=== PATIENT | female | born 1940 | race Two or more races ===

== ENCOUNTER 2021-01-14 15:37 | Emergency (ER) | payer OTHER ==
[~2021-01-14] VITALS: Ht 152.4 cm; Wt 64.9 kg
[2021-01-14] MEDS ORDERED: EZALLOR SPRINKL10 MG (16:18)
[2021-01-14] MEDS ORDERED: CARVEDILOL25 M1 (16:18)
[2021-01-14] MEDS ORDERED: COZAAR50 MG (16:18)
[2021-01-14] MEDS ORDERED: NEURONTIN600 M1 PO (16:19)
[2021-01-14] MEDS ORDERED: HYDROCHLOROTH12.5 MG (16:19)
[2021-01-14] MEDS ORDERED: PANTOPRAZOLE SO40 M2 (16:19)
[2021-01-15] MEDS ORDERED: CIPRO500 MG PO (00:04)
[2021-01-15] MEDS ORDERED: PYRIDIUM DS200 MG PO (00:04)
== END 2021-01-15 01:11 | disposition home or self-care (01) ==
LOC: ER 15:37
DX: N39.0 Urinary tract infection, site not specified (principal); R10.32 Left lower quadrant pain

== ENCOUNTER 2021-04-22 18:33 | Emergency (ER) | payer OTHER ==
[~2021-04-22] VITALS: Ht 152.4 cm; Wt 62.6 kg
[~2021-04-22 18:33] MED LIST: CARVEDILOL25 M1; CIPRO500 MG PO; COZAAR50 MG; EZALLOR SPRINKL10 MG; HYDROCHLOROTH12.5 MG; NEURONTIN600 M1 PO; PANTOPRAZOLE SO40 M2; PYRIDIUM DS200 MG PO
[2021-04-22] MEDS ORDERED: ZOLOFT50 MG (18:59)
[2021-04-22] MEDS ORDERED: ALLERGY RELIEF180 MG (19:00)
[2021-04-22] MEDS ORDERED: OMEPRAZOLE MAGN20 MG PO (21:18)
== END 2021-04-22 21:23 | disposition home or self-care (01) ==
LOC: ER 18:33
DX: K21.9 Gastro-esophageal reflux disease without esophagitis (principal)

== ENCOUNTER 2025-01-29 12:04 | Emergency (ER) | payer OTHER ==
[~2025-01-29] VITALS: Ht 152.4 cm; Wt 63.0 kg
[~2025-01-29 12:04] MED LIST changes: +ALLERGY RELIEF180 MG; +OMEPRAZOLE MAGN20 MG PO; +ZOLOFT50 MG
[2025-01-29] MEDS ORDERED: TAMSULOSIN HCL 0.4 MG CAP PO ONE ×2 (13:08→13:15)
[2025-01-29] MEDS ORDERED: 0.9 % SODIUM CHLORIDE 1,000 ML IV SCH (13:15)
[2025-01-29] MEDS ORDERED: MORPHINE SULFATE 4 MG/ML VIAL IV ONE (13:15)
[2025-01-29 13:35] LABS: BASO % 0.6 % (0.1-1.2); EOS # 0.20 (0.04-0.54); EOS % 2.3 % (0.7-7.0); LYMPH # 2.61 (1.18-3.74); LYMPH % 30.3 % (19.3-53.1); MEAN PLATELET VOLUME 9.80 fl (9.4-12.4); MONO # 0.63 (0.24-0.82); MONO % 7.3 % (4.7-12.5); NEUT # 5.09 (1.56-6.13); NEUT % 59.3 % (34.0-71.1); RED CELL DISTRIBUTION WIDTH 11.7 % (11.6-14.4)
[2025-01-29 14:53] LABS: BUN CREA RATIO 23.0 (7.0-25.0); CREATININE SERUM 0.79 mg/dL (0.55-1.02); GFR 69.67; GLUCOSE FASTING 97.0 mg/dL (65-100); OSMOLALITY SERUM 283.0 MOSM/KG (275-295)
[2025-01-29 16:18] LABS: URINE APPEARANCE Clear; URINE BILIRRUBIN Negative (NEGATIVE); URINE BLOOD Negative; URINE COLOR Yellow; URINE GLUCOSE Negative (NEGATIVE); URINE KETONE Negative (NEGATIVE); URINE LEUKOCYTE Small; URINE NITRATE Negative; URINE PROTEIN Negative (NEGATIVE); URINE UROBILINOGEN 0.2 E.U./dl
[2025-01-29 16:20] LABS: URINE BACTERIA 35.9 uL (0.0-1933); URINE EPITHELIAL CELLS 8.6 uL (0.0-38.8); URINE RBC 10.9 uL (0.0-20.8); URINE WBC 9.0 uL (0.0-23.2)
[2025-01-29 16:37] LABS: URINE CAST 0.00 uL (0.0-1.40)
[2025-01-29] MEDS ORDERED: BACTRIM DS TAB1 EACH PO (17:11)
[2025-01-29] MEDS ORDERED: PEPCID AC20 MG PO (17:11)
== END 2025-01-29 17:18 | disposition home or self-care (01) ==
LOC: ER 12:04
PROVIDERS: Emergency Medicine
DX: N39.0 Urinary tract infection, site not specified (principal); R10.9 Unspecified abdominal pain; I10 Essential (primary) hypertension; E03.8 Other specified hypothyroidism; Z88.0 Allergy status to penicillin; Z88.6 Allergy status to analgesic agent; Z91.041 Radiographic dye allergy status
CPT/HCPCS: 36415; 74176; 96365; 96366; 99284; J2270; J7030